=== PATIENT | female | born 1965 | race African-American/Black ===

== ENCOUNTER 2018-05-26 20:47 | Emergency (ER) | payer SELFPAY ==
[~2018-05-26] VITALS: Ht 172.7 cm; Wt 88.0 kg
[2018-05-26 20:54] VITALS: BP 112/69
== END 2018-05-26 21:02 | disposition left against medical advice (07) ==
LOC: ER 20:47
DX: Z53.21 Procedure and treatment not carried out due to patient leaving prior to being seen by health care provider (principal)